=== PATIENT | male | born 1980 | race Caucasian/White ===

== ENCOUNTER 2018-02-16 14:48 | Emergency (ER) | payer OTHER ==
[~2018-02-16] VITALS: Ht 188 cm; Wt 70.8 kg
[2018-02-16 17:00] VITALS: BP 118/64
[2018-02-16] MEDS ORDERED: HYDROCODONE-AP1 EAC6 PO ×2 (17:32→17:38)
[2018-02-16] MEDS ORDERED: AUGMENTIN 500-1 EACH PO ×2 (17:32→17:38)
== END 2018-02-16 18:00 | disposition home or self-care (01) ==
LOC: ER 14:48
DX: S01.511A Laceration without foreign body of lip, initial encounter (principal); S02.5XXA Fracture of tooth (traumatic), initial encounter for closed fracture; S01.512A Laceration without foreign body of oral cavity, initial encounter; S02.42XA Fracture of alveolus of maxilla, initial encounter for closed fracture; W22.8XXA Striking against or struck by other objects, initial encounter; Y93.89 Activity, other specified; Y92.89 Other specified places as the place of occurrence of the external cause; Y99.0 Civilian activity done for income or pay